=== PATIENT | female | born 1995 | race Caucasian/White ===

== ENCOUNTER 2021-09-10 10:10 | Outpatient (CLI) | payer OTHER, SELFPAY ==
[2021-09-14 16:52] LABS: HPV Reflexed? NOT INDICATED
== END 2021-09-10 23:59 | disposition short-term general hospital (02) ==
LOC: LABSPEC 10:15
PROVIDERS: Visit Provider Obstetrics & Gynecology
DX: Z12.4 Encounter for screening for malignant neoplasm of cervix (principal)
CPT/HCPCS: 88175; G0145